=== PATIENT | male | born 1945 | race Caucasian/White ===

== ENCOUNTER 2018-01-30 05:41 | Inpatient (IN) ==
[2018-02-04 11:52] VITALS: BP 123/70
== END 2018-02-04 16:45 | DRG 246 ==
LOC: N.ED 05:41 → N.EDINP 07:35 → N.CC 08:09 → N.TELEN 01-31 15:49 → N.ICU 02-01 18:10 → N.TELEN 02-03 13:49
PROVIDERS: ADMIT Internal Medicine Cardiovascular Disease; ATTEND Internal Medicine Cardiovascular Disease
PROC: CLCCHCL (ICD-10-PCS; 2018-01-31 13:45)

== ENCOUNTER 2021-01-08 12:58 | Observation (INO) ==
[2021-01-08 16:00] LABS: Basophils % 0.6 % (0.0-0.8); Eosinophils % 0.4 % (0.00-10.9); Hematocrit 34.4 VOL% (42.0-52.0); Immature Granulocytes % 0.3 %; Immature Granulocytes Absolute 0.02 #; Lymphocytes # 1.8 10*3/uL (1.4-4.0); Lymphocytes % 24.3 % (21.2-54.2); Mean Corpuscular Volume 87.5 FL (87-102); Mean Platelet Volume 9.7 FL (9.6-12.0); Monocytes % 6.2 % (1.7-12.7); Neutrophils % 68.2 % (38.7-73.9); Platelet Count 205 T/CUMM (130-400); Red Blood Count 3.93 MC/CUMM (3.8-5.5); Red Cell Distribution Width 13.2 % (9.3-17.3); White Blood Count 7.2 T/CUMM (4-12)
[2021-01-08 16:10] LABS: INR 1.1; PT Patient Result 11.9 SECS (10.5-12.0); Partial Thromboplastin Time 24.8 SECS (23.9-33.8)
[2021-01-08 16:22] LABS: Albumin 4.1 G/DL (3.4-5.0); Bilirubin,Total 0.7 MG/DL (0.20-1.00); Calcium 8.7 MG/DL (8.5-10.1); Osmolality,Calculated 280.5 MOS/KG (273-304); Potassium 3.9 MMOL/L (3.5-5.1); Total Protein 7.7 G/DL (6.4-8.2)
[2021-01-08 17:00] LABS: Bilirubin,Urine Negative (Negative); Blood, Urine Negative (Negative); Glucose,Urine (UA) Negative (Negative); Ketones,Urine Negative (Negative); Mucus,Urine Occasional /LPF (Occasional); Nitrite,Urine Negative (Negative); Protein,Urine 100 MG/DL; RBC,Urine 1 /HPF (0-4); Urine Appearance CLEAR (Clear); Urine Color Yellow (Yellow); Urine Specific Gravity 1.018 (1.001-1.035); Urine Urobilinogen < 2.0 EU/DL (0.2-1.0)
[2021-01-08] MEDS ORDERED: DOCUSATE SODIUM 100 MG CAPSULE PO PRN (17:18)
[2021-01-08] MEDS ORDERED: DEXTROSE 50% 25 GM/50 ML VIAL IV PRN (17:18)
[2021-01-08] MEDS ORDERED: GLUCAGON 1 MG VIAL IM PRN (17:18)
[2021-01-08] MEDS ORDERED: hydrALAZINE 20 MG/1 ML VIAL IV PRN (17:18)
[2021-01-08] MEDS ORDERED: ONDANSETRON 4 MG/2 ML VIAL IV PRN (17:18)
[2021-01-08] MEDS ORDERED: LABETALOL 20 MG/4 ML SYRINGE IV PRN (18:14)
[2021-01-08] MEDS ORDERED: NITROGLYCERIN SL 0.4 MG TABLET SL PRN (18:14)
[2021-01-08] MEDS: ALBUTEROL 2.5 MG/3 ML NEB RESP TX SCH (19:35)
[2021-01-08] MEDS: SODIUM CHLORIDE 0.9% 1,000 ML IV SCH (21:23)
[2021-01-08] MEDS: SIMVASTATIN 40 MG TABLET PO SCH (21:24)
[2021-01-08] MEDS: GABAPENTIN 400 MG CAPSULE PO SCH (21:24)
[2021-01-08] MEDS: TAMSULOSIN 0.4 MG CAPSULE PO SCH (21:24)
[2021-01-08] MEDS: traZODone 50 MG TABLET PO SCH (21:25)
[2021-01-08] MEDS: INSULIN REGULAR 100 UNIT/ML SUBCUT SCH (21:28)
[2021-01-08] MEDS ORDERED: PNEUMOCOCCAL VACCINE (13 VALENT) 0.5 ML SYRINGE IM ONE (21:45)
[2021-01-09] MEDS: ALBUTEROL 2.5 MG/3 ML NEB RESP TX SCH ×4 (00:26→19:00)
[2021-01-09 01:04] LABS: Basophils % 0.4 % (0.0-0.8); Eosinophils # 0.1 10*3/uL (0.0-0.87); Eosinophils % 0.5 % (0.00-10.9); Hematocrit 33.8 VOL% (42.0-52.0); Immature Granulocytes % 0.3 %; Immature Granulocytes Absolute 0.03 #; Lymphocytes # 1.9 10*3/uL (1.4-4.0); Lymphocytes % 19.1 % (21.2-54.2); Mean Corpuscular HGB Conc 32.5 GM/DL (32-36); Mean Corpuscular Volume 86.7 FL (87-102); Monocytes % 7.8 % (1.7-12.7); Neutrophils % 71.9 % (38.7-73.9); Platelet Count 196 T/CUMM (130-400); Red Cell Distribution Width 13.5 % (9.3-17.3); White Blood Count 9.9 T/CUMM (4-12)
[2021-01-09] MEDS: ACETAMINOPHEN 325 MG TABLET PO PRN ×2 (01:28→09:04)
[2021-01-09 01:29] LABS: Osmolality,Calculated 282.5 MOS/KG (273-304); Potassium 3.4 MMOL/L (3.5-5.1); Risk Ratio 2.6; Thyroid Stimulating Hormone 2.92 uIU/ml (0.358-3.74); VLDL Cholesterol 35.8 MG/DL
[2021-01-09 01:50] LABS: Bilirubin,Urine Negative (Negative); Blood, Urine Negative (Negative); Glucose,Urine (UA) Negative (Negative); Ketones,Urine Negative (Negative); Nitrite,Urine Negative (Negative); Protein,Urine 100 MG/DL; RBC,Urine <1 /HPF (0-4); Urine Appearance CLEAR (Clear); Urine Color Straw (Yellow); Urine Specific Gravity 1.025 (1.001-1.035); Urine Urobilinogen < 2.0 EU/DL (0.2-1.0)
[2021-01-09 02:05] LABS: Barbiturates Screen,Urine Negative (Negative); Benzodiazepines Screen,Urine Negative (Negative); Cannabinoid Screen,Urine Negative (Negative); Opiate Screen,Urine Positive (Negative); Phencyclidine Screen,Urine Negative (Negative)
[2021-01-09] MEDS ORDERED: CLOPIDOGREL 75 MG TABLET PO SCH (09:00)
[2021-01-09] MEDS: INSULIN REGULAR 100 UNIT/ML SUBCUT SCH ×4 (09:00→21:53)
[2021-01-09] MEDS: EZETIMIBE 10 MG TABLET PO SCH (09:04)
[2021-01-09] MEDS: GABAPENTIN 400 MG CAPSULE PO SCH ×2 (09:04→21:53)
[2021-01-09] MEDS: SERTRALINE 50 MG TABLET PO SCH (09:04)
[2021-01-09] MEDS: VALSARTAN 160 MG TABLET PO SCH (09:04)
[2021-01-09] MEDS: PANTOPRAZOLE 40 MG TABLET PO SCH (09:04)
[2021-01-09] MEDS: ASPIRIN EC 81 MG TABLET PO SCH (09:04)
[2021-01-09] MEDS: SODIUM CHLORIDE 0.9% 1,000 ML IV SCH (09:08)
[2021-01-09] MEDS: AMOXICILLIN/CLAV 875 MG TABLET PO SCH ×2 (09:08→21:52)
[2021-01-09] MEDS: OXYBUTYNIN XL 5 MG TABLET PO SCH (15:02)
[2021-01-09] MEDS: TAMSULOSIN 0.4 MG CAPSULE PO SCH (21:51)
[2021-01-09] MEDS: TICAGRELOR 90 MG TABLET PO SCH (21:51)
[2021-01-09] MEDS: traZODone 50 MG TABLET PO SCH (21:53)
[2021-01-09] MEDS: SIMVASTATIN 40 MG TABLET PO SCH (21:53)
[2021-01-10] MEDS: ALBUTEROL 2.5 MG/3 ML NEB RESP TX SCH ×2 (00:38→07:13)
[2021-01-10] MEDS: INSULIN REGULAR 100 UNIT/ML SUBCUT SCH ×2 (08:42→13:03)
[2021-01-10] MEDS: AMOXICILLIN/CLAV 875 MG TABLET PO SCH (08:42)
[2021-01-10] MEDS: EZETIMIBE 10 MG TABLET PO SCH (08:43)
[2021-01-10] MEDS: ASPIRIN EC 81 MG TABLET PO SCH (08:43)
[2021-01-10] MEDS: GABAPENTIN 400 MG CAPSULE PO SCH (08:43)
[2021-01-10] MEDS: VALSARTAN 160 MG TABLET PO SCH (08:43)
[2021-01-10] MEDS: TICAGRELOR 90 MG TABLET PO SCH (08:43)
[2021-01-10] MEDS: PANTOPRAZOLE 40 MG TABLET PO SCH (08:44)
[2021-01-10] MEDS: SERTRALINE 50 MG TABLET PO SCH (08:44)
[2021-01-10] MEDS ORDERED: NIACIN ER 500 MG TABLET PO SCH (09:00)
[2021-01-10] MEDS ORDERED: carvediloL 25 MG TABLET PO SCH (09:00)
[2021-01-10] MEDS ORDERED: LIDOCAINE 5% PATCH TRANSDERM SCH (09:00)
[2021-01-10] MEDS: OXYBUTYNIN XL 5 MG TABLET PO SCH (10:09)
[2021-01-10 12:31] VITALS: BP 164/84
== END 2021-01-10 13:00 ==
LOC: N.ED 12:58 → N.EDINP 12:58 → N.4E 20:47
PROVIDERS: ADMIT Internal Medicine; ATTEND Internal Medicine

== ENCOUNTER 2022-01-26 16:21 | Inpatient (IN) ==
[2022-01-26] MEDS ORDERED: GLUCAGON 1 MG VIAL IM PRN (18:17)
[2022-01-26] MEDS ORDERED: ONDANSETRON 4 MG/2 ML VIAL IV PRN (18:17)
[2022-01-26] MEDS ORDERED: ACETAMINOPHEN 325 MG TABLET PO PRN (18:17)
[2022-01-26] MEDS ORDERED: SODIUM CHLORIDE 0.9% 1,000 ML IV PRN (18:17)
[2022-01-26] MEDS ORDERED: DEXTROSE 10% 250 ML BAG IV PRN (18:26)
[2022-01-26 20:04] LABS: Hematocrit 22.5 VOL% (42.0-52.0)
[2022-01-26 20:10] LABS: Hemoglobin 6.3 GM/DL (14.0-18.0)
[2022-01-26] MEDS: DONEPEZIL 5 MG TABLET PO SCH (20:46)
[2022-01-26] MEDS: GABAPENTIN 600 MG TABLET PO SCH (20:46)
[2022-01-26] MEDS: NIACIN ER 500 MG TABLET PO SCH (20:46)
[2022-01-26] MEDS: SIMVASTATIN 40 MG TABLET PO SCH (20:46)
[2022-01-26] MEDS: PANTOPRAZOLE 40 MG VIAL IV SCH (20:46)
[2022-01-26] MEDS: INSULIN REGULAR 100 UNIT/ML SUBCUT SCH (20:46)
[2022-01-27 06:10] LABS: Basophils % 0.9 % (0.0-0.8); Eosinophils # 0.1 10*3/uL (0.0-0.87); Eosinophils % 1.2 % (0.00-10.9); Hematocrit 27.4 VOL% (42.0-52.0); Hemoglobin 7.9 GM/DL (14.0-18.0); Immature Granulocytes % 0.2 %; Immature Granulocytes Absolute 0.01 #; Lymphocytes # 1.3 10*3/uL (1.4-4.0); Lymphocytes % 29.6 % (21.2-54.2); Mean Corpuscular HGB Conc 28.8 GM/DL (32-36); Mean Corpuscular Volume 80.1 FL (87-102); Mean Platelet Volume 8.7 FL (9.6-12.0); Monocytes # 0.5 10*3/uL (0.11-0.8); Monocytes % 11.1 % (1.7-12.7); Platelet Count 193 T/CUMM (130-400); Red Blood Count 3.42 MC/CUMM (3.8-5.5); Red Cell Distribution Width 17.2 % (9.3-17.3); White Blood Count 4.3 T/CUMM (4-12)
[2022-01-27 06:27] LABS: Albumin 3.6 G/DL (3.4-5.0); Bilirubin,Total 0.9 MG/DL (0.20-1.00); Osmolality,Calculated 275.7 MOS/KG (273-304); Potassium 4.4 MMOL/L (3.5-5.1); Total Protein 7.1 G/DL (6.4-8.2)
[2022-01-27] MEDS: INSULIN REGULAR 100 UNIT/ML SUBCUT SCH ×4 (07:46→21:29)
[2022-01-27] MEDS: OXYBUTYNIN XL 5 MG TABLET PO SCH (08:58)
[2022-01-27] MEDS: NIACIN ER 500 MG TABLET PO SCH ×2 (08:58→21:29)
[2022-01-27] MEDS: VALSARTAN 160 MG TABLET PO SCH (08:58)
[2022-01-27] MEDS: GABAPENTIN 600 MG TABLET PO SCH ×3 (08:58→21:29)
[2022-01-27] MEDS: LORATADINE 10 MG TABLET PO SCH (08:59)
[2022-01-27] MEDS: SERTRALINE 50 MG TABLET PO SCH (08:59)
[2022-01-27] MEDS ORDERED: MELOXICAM 7.5 MG TABLET PO SCH (09:00)
[2022-01-27] MEDS: PANTOPRAZOLE 40 MG VIAL IV SCH ×2 (09:00→21:29)
[2022-01-27 15:12] LABS: Hematocrit 29.9 VOL% (42.0-52.0); Hemoglobin 8.8 GM/DL (14.0-18.0)
[2022-01-27] MEDS: TAMSULOSIN 0.4 MG CAPSULE PO SCH (21:29)
[2022-01-27] MEDS: DONEPEZIL 5 MG TABLET PO SCH (21:29)
[2022-01-27] MEDS: SIMVASTATIN 40 MG TABLET PO SCH (21:29)
[2022-01-27] MEDS: traZODone 50 MG TABLET PO SCH (21:29)
[2022-01-28 06:18] LABS: Hematocrit 30.4 VOL% (42.0-52.0); Hemoglobin 8.8 GM/DL (14.0-18.0); Mean Corpuscular HGB Conc 28.9 GM/DL (32-36); Mean Corpuscular Volume 79.6 FL (87-102); Mean Platelet Volume 9.1 FL (9.6-12.0); Platelet Count 211 T/CUMM (130-400); Red Blood Count 3.82 MC/CUMM (3.8-5.5); White Blood Count 5.5 T/CUMM (4-12)
[2022-01-28 06:19] LABS: Basophils % 0.5 % (0.0-0.8); Eosinophils # 0.1 10*3/uL (0.0-0.87); Eosinophils % 1.4 % (0.00-10.9); Immature Granulocytes % 0.2 %; Immature Granulocytes Absolute 0.01 #; Lymphocytes # 1.4 10*3/uL (1.4-4.0); Lymphocytes % 25.1 % (21.2-54.2); Monocytes # 0.6 10*3/uL (0.11-0.8); Monocytes % 11.2 % (1.7-12.7); Neutrophils % 61.6 % (38.7-73.9)
[2022-01-28 06:34] LABS: Calcium 9.4 MG/DL (8.5-10.1); Osmolality,Calculated 274.8 MOS/KG (273-304); Potassium 3.9 MMOL/L (3.5-5.1)
[2022-01-28] MEDS ORDERED: LACTATED RINGERS 1,000 ML IV SCH (08:30)
[2022-01-28] MEDS ORDERED: propofoL 200 MG/20 ML VIAL IV ONE (08:59)
[2022-01-28] MEDS ORDERED: LIDOCAINE 2% 5 ML VIAL ONE (08:59)
[2022-01-28] MEDS: INSULIN REGULAR 100 UNIT/ML SUBCUT SCH ×4 (10:31→21:39)
[2022-01-28] MEDS: VALSARTAN 160 MG TABLET PO SCH (10:31)
[2022-01-28] MEDS: OXYBUTYNIN XL 5 MG TABLET PO SCH (10:31)
[2022-01-28] MEDS: LORATADINE 10 MG TABLET PO SCH (10:31)
[2022-01-28] MEDS: NIACIN ER 500 MG TABLET PO SCH ×2 (10:32→21:27)
[2022-01-28] MEDS: PANTOPRAZOLE 40 MG VIAL IV SCH ×2 (10:32→21:27)
[2022-01-28] MEDS: GABAPENTIN 600 MG TABLET PO SCH ×3 (10:32→21:27)
[2022-01-28] MEDS: SERTRALINE 50 MG TABLET PO SCH (10:32)
[2022-01-28] MEDS: BISACODYL 5 MG TABLET PO SCH ×2 (10:33→16:54)
[2022-01-28] MEDS: METOCLOPRAMIDE 10 MG/2 ML VIAL IV SCH ×2 (14:33→17:03)
[2022-01-28] MEDS: SIMVASTATIN 40 MG TABLET PO SCH (21:27)
[2022-01-28] MEDS: traZODone 50 MG TABLET PO SCH (21:27)
[2022-01-28] MEDS: TAMSULOSIN 0.4 MG CAPSULE PO SCH (21:27)
[2022-01-28] MEDS: DONEPEZIL 5 MG TABLET PO SCH (21:27)
[2022-01-29] MEDS: METOCLOPRAMIDE 10 MG/2 ML VIAL IV SCH ×5 (00:02→23:29)
[2022-01-29] MEDS: BISACODYL 5 MG TABLET PO SCH ×3 (01:15→21:40)
[2022-01-29 07:16] LABS: Calcium 9.6 MG/DL (8.5-10.1); Osmolality,Calculated 277.7 MOS/KG (273-304); Potassium 3.9 MMOL/L (3.5-5.1)
[2022-01-29 07:24] LABS: Basophils % 0.6 % (0.0-0.8); Eosinophils # 0.1 10*3/uL (0.0-0.87); Eosinophils % 1.6 % (0.00-10.9); Hematocrit 30.4 VOL% (42.0-52.0); Immature Granulocytes % 0.3 %; Immature Granulocytes Absolute 0.02 #; Lymphocytes # 1.5 10*3/uL (1.4-4.0); Lymphocytes % 23.5 % (21.2-54.2); Mean Corpuscular HGB Conc 29.3 GM/DL (32-36); Mean Corpuscular Volume 80.4 FL (87-102); Mean Platelet Volume 9.5 FL (9.6-12.0); Monocytes # 0.6 10*3/uL (0.11-0.8); Monocytes % 10.2 % (1.7-12.7); Neutrophils % 63.8 % (38.7-73.9); Platelet Count 203 T/CUMM (130-400); Red Blood Count 3.78 MC/CUMM (3.8-5.5); Red Cell Distribution Width 16.9 % (9.3-17.3); White Blood Count 6.2 T/CUMM (4-12)
[2022-01-29 07:25] LABS: Hemoglobin 8.9 GM/DL (14.0-18.0)
[2022-01-29] MEDS: PANTOPRAZOLE 40 MG VIAL IV SCH ×2 (08:23→21:37)
[2022-01-29] MEDS: VALSARTAN 160 MG TABLET PO SCH (08:23)
[2022-01-29] MEDS: OXYBUTYNIN XL 5 MG TABLET PO SCH (08:23)
[2022-01-29] MEDS: NIACIN ER 500 MG TABLET PO SCH ×2 (08:23→21:38)
[2022-01-29] MEDS: SERTRALINE 50 MG TABLET PO SCH (08:24)
[2022-01-29] MEDS: GABAPENTIN 600 MG TABLET PO SCH ×3 (08:24→21:38)
[2022-01-29] MEDS: LORATADINE 10 MG TABLET PO SCH (08:24)
[2022-01-29] MEDS: LACTATED RINGERS 1,000 ML IV SCH ×2 (08:26→18:14)
[2022-01-29] MEDS: INSULIN REGULAR 100 UNIT/ML SUBCUT SCH ×4 (09:35→21:35)
[2022-01-29] MEDS ORDERED: POLYETHYLENE GLYCOL POWDER 255 GM BOTTLE PO ONE (18:00)
[2022-01-29] MEDS ORDERED: MAGNESIUM CITRATE 300 ML BOTTLE PO ONE (21:00)
[2022-01-29] MEDS: TAMSULOSIN 0.4 MG CAPSULE PO SCH (21:38)
[2022-01-29] MEDS: SIMVASTATIN 40 MG TABLET PO SCH (21:38)
[2022-01-29] MEDS: traZODone 50 MG TABLET PO SCH (21:38)
[2022-01-29] MEDS: DONEPEZIL 5 MG TABLET PO SCH (21:38)
[2022-01-30] MEDS: BISACODYL 5 MG TABLET PO SCH (05:42)
[2022-01-30] MEDS: METOCLOPRAMIDE 10 MG/2 ML VIAL IV SCH (05:42)
[2022-01-30] MEDS ORDERED: LACTATED RINGERS 1,000 ML IV SCH (07:00)
[2022-01-30 08:18] LABS: Basophils % 0.9 % (0.0-0.8); Eosinophils # 0.1 10*3/uL (0.0-0.87); Eosinophils % 2.4 % (0.00-10.9); Hematocrit 30.3 VOL% (42.0-52.0); Hemoglobin 8.8 GM/DL (14.0-18.0); Immature Granulocytes % 0.2 %; Immature Granulocytes Absolute 0.01 #; Lymphocytes # 1.2 10*3/uL (1.4-4.0); Lymphocytes % 25.8 % (21.2-54.2); Mean Corpuscular Volume 80.4 FL (87-102); Mean Platelet Volume 8.8 FL (9.6-12.0); Monocytes # 0.4 10*3/uL (0.11-0.8); Monocytes % 8.9 % (1.7-12.7); Neutrophils % 61.8 % (38.7-73.9); Platelet Count 186 T/CUMM (130-400); Red Blood Count 3.77 MC/CUMM (3.8-5.5); Red Cell Distribution Width 16.8 % (9.3-17.3); White Blood Count 4.6 T/CUMM (4-12)
[2022-01-30 08:38] LABS: Calcium 9.1 MG/DL (8.5-10.1); Osmolality,Calculated 278.4 MOS/KG (273-304); Potassium 3.6 MMOL/L (3.5-5.1)
[2022-01-30] MEDS ORDERED: propofoL 200 MG/20 ML VIAL IV ONE (08:44)
[2022-01-30] MEDS ORDERED: LIDOCAINE 2% 5 ML VIAL ONE (08:44)
[2022-01-30] MEDS ORDERED: KETAMINE 500 MG/10 ML VIAL ONE (08:49)
[2022-01-30 12:11] VITALS: BP 115/61
[2022-01-30] MEDS: INSULIN REGULAR 100 UNIT/ML SUBCUT SCH (12:50)
[2022-01-30] MEDS: LORATADINE 10 MG TABLET PO SCH (12:50)
[2022-01-30] MEDS: OXYBUTYNIN XL 5 MG TABLET PO SCH (12:50)
[2022-01-30] MEDS: VALSARTAN 160 MG TABLET PO SCH (12:50)
[2022-01-30] MEDS: GABAPENTIN 600 MG TABLET PO SCH (12:51)
[2022-01-30] MEDS: PANTOPRAZOLE 40 MG VIAL IV SCH (12:51)
[2022-01-30] MEDS: NIACIN ER 500 MG TABLET PO SCH (12:51)
[2022-01-30] MEDS: SERTRALINE 50 MG TABLET PO SCH (12:51)
== END 2022-01-30 13:02 | disposition swing bed (61) | DRG 379 ==
LOC: SUATTDRO 18:14 → N.5E 18:14
PROVIDERS: ADMIT Internal Medicine; ATTEND Internal Medicine